=== PATIENT | male | born 1985 | race Caucasian/White ===

== ENCOUNTER → 2019-01-09 08:58 | Outpatient (CLI) | payer OTHER, SELFPAY | LOC: PSN 09:02 | PROVIDERS: Family Provider Family Medicine; PCP Family Medicine; Referring Provider Family Medicine; Visit Provider Family Medicine | DX: R00.0 Tachycardia, unspecified (principal) | CPT/HCPCS: 93225; 93226 ==

== ENCOUNTER 2019-01-21 23:36 | Emergency (ER) | payer OTHER, SELFPAY ==
[2019-01-21 23:38] VITALS: BP 123/80; PULSE 95; RESP 16; TEMP 36.8; O2SAT 98; BMI 19.3
[2019-01-21 23:42] VITALS: RESP 16
--- NOTE | 2019-01-21 23:48 | ED.RN ---
RN CALLED FOR EKG, PULLED OLD EKGS FOR DR SNELL
--- NOTE | 2019-01-21 23:54 | EKG12_ITS ---
Test Reason : PALPITATIONS Blood Pressure : / mmHG Vent. Rate : 059 BPM Atrial Rate : 058 BPM P-R Int : 000 ms QRS Dur : 096 ms QT Int : 406 ms P-R-T Axes : 000 091 063 degrees QTc Int : 401 ms Junctional rhythm Rightward axis Abnormal ECG Confirmed by GIOVANA CASTELAN, JOESPH ([id number]), newspaper editor managing JACK GARCIA ([id number]) on 01/23/2019 1:05:45 PM Referred By: SERENITY Confirmed By:JOESPH AKHTAR MD
--- NOTE | 2019-01-21 23:54 | RAD_ITS ---
STUDY: X-RAY CHEST REASON FOR EXAM: Male, 33 years old. Chest pain TECHNIQUE: 2 views COMPARISON: None. FINDINGS: There is COPD demonstrated by flattening of hemidiaphragms and hyperinflation of the lungs. The heart is small in size.. Normal visualized thoracic spine. Normal visualized ribs, clavicles, and shoulders. There is no demonstrated abnormality of the visualized soft tissue structures of the upper abdomen. RAD/Chest PA and Lateral IMPRESSION: COPD. Nothing acute in the lungs Electronically Signed: Ankit Cleveland MD at 1:16 EDT Tel , Service support ,
[2019-01-21 23:58] VITALS: O2SAT 100
[2019-01-22 00:05] LABS: Absolute Neutrophil Count 3.6 X10^3/uL (2.0-7.7); Basophil% 1.4 % (0-1); Eosinophil# 0.29 X10^3/uL; Eosinophils% 4.1 % (0-5); Hematocrit 46.4 % (40-54); Hemoglobin 16.3 g/dl (13.0-16.5); Lymphocyte % 32.9 % (19-41); Mean Corp Hgb Conc 35.1 g/gl (32-36); Mean Corpuscular Hgb 32.2 pg (27.0-32.0); Mean Corpuscular Volume 91.7 fL (80-94); Mean Platelet Vol. 9.5 fl (6.2-12.0); Monocyte# 0.68 X10^3/uL; Monocyte% 9.7 % (0-10); Neutrophil # 3.61 X10^3/uL (2.7-7.7); Neutrophil % 51.8 % (47-70); Platelet Count 272 K/mm3 (150-450); RBC Distribution Width CV 11.9 % (11.6-14.6); RBC Distribution Width SD 39.5 fl (35.1-43.9); Red Blood Count 5.06 M/mm3 (4.6-6.2)
[2019-01-22 00:12] LABS: POSITIVE COUNT NO; POSITIVE DIFFERENTIAL NO; POSITIVE MORPHOLOGY NO
[2019-01-22] MEDS: 0.9% Normal Saline 1,000 ML 1000 ML IV (00:21)
[2019-01-22 00:23] LABS: D-Dimer Quantitative (DVT/PE) 0.29 FEU/ug/m (0.27-0.49)
[2019-01-22 00:33] LABS: Anion Gap 4 (5-15); BUN 15 mg/dL (7-18); Calcium,Total 8.8 mg/dL (8.5-10.1); Chloride 108 mmol/L (98-107); Creatinine, Serum 0.94 mg/dL (0.70-1.30); EST Glomerular Filtration Rate 100 mL/min (>60); Est Glom Filt Rate - Afr Amer 121 mL/min (>60); Estimated Creatinine Clearance 104.46 ml/min; Glucose 91 mg/dL (74-106); Potassium 3.6 mmol/L (3.5-5.1); Sodium Level 142 mmol/L (136-145)
--- NOTE | 2019-01-22 00:46 | ED.VISSUMM ---
- ER Visit Summary Date of Service: 01/22/19 Chief Complaint: Palpitations History of Present Illness: The patient is a 33 M presenting with several months of palpitations and anxiety. He saw his primary care physician and it was presumed secondary to anxiety because he has been under a severe amount of stress at work and has been given several more responsibilities. He was started on Zoloft and as needed Atarax. He has had mild improvement but is still having intermittent palpitations during times of stress. He recently wore a Holter monitor that revealed sinus tachycardia that coincided with his symptoms based on his journal. There are no other concerning findings. He is currently scheduled to follow-up with cardiology. He denies new or concerning features. They have been fairly similar throughout this. He denies lower extremity pain or swelling. Denies history of DVT or PE. He has not been on cardiac medications. He does not smoke. No family history of cardiac disease at young age. No syncopal episodes. Physical Examination: Vitals are within normal limits. Heart rate is in the 90s and appears sinus on the monitor. No murmur. Lungs are clear. Good air movement. No chest wall tenderness. No clinical evidence of DVT. No edema. Normal neurologic exam. He appears somewhat anxious but thought content is normal. No suicidal thoughts or ideation. Test Results: CBC and BMP are normal. D-dimer negative. EKG was obtained during his blood draw when he did get slightly lightheaded and sharif'd down briefly. He states that this is typical for him during blood draws. This lasted only a few minutes. His EKG reveals a regular rhythm. Narrow complexes. No ST elevation. There are obvious P waves on the monitor and it appears sinus. Chest x-ray unremarkable. Emergency Department Course and Treatment: He was given IV fluids and observed for several hours. He is asymptomatic. He appears to be in normal sinus rhythm. I reviewed his Holter monitor results. There was sinus tachycardia but no evidence of life-threatening rhythm. He did have multiple PVCs as well. He looks quite well here. He has close follow-up already in place with cardiology. I feel he can safely be discharged home. He will return here if worse. Treatment Plan: Follow-up with cardiology, call tomorrow to see if he can be seen sooner. Disposition: Home stable Impression: Subsequent encounter palpitations This note was generated with [employer] dictation software. It may contain incorrect words, spelling, and punctuation that were not noted in review of the chart prior to signing ED Disposition - Plan for ED Patient: Instructions: ED Palpitations Referrals: Garland Foreman MD [STAFF PHYSICIAN] - (live)
[2019-01-22 01:35] VITALS: BP 106/81; PULSE 78; RESP 16; O2SAT 96
[2019-01-22] MEDS: LORazepam 0.5 MG Tablet PO (01:35)
== END 2019-01-22 01:37 | disposition home or self-care (01) ==
LOC: ED 23:55
PROVIDERS: Emergency Provider Emergency Medicine; Family Provider Family Medicine; PCP Family Medicine
DX: R00.2 Palpitations (principal); R00.0 Tachycardia, unspecified; R42 Dizziness and giddiness; F41.9 Anxiety disorder, unspecified; Z79.899 Other long term (current) drug therapy
CPT/HCPCS: 71046; 80048; 85025; 85379; 93005; 99285

== ENCOUNTER → 2019-02-05 10:45 | Outpatient (CLI) | payer OTHER, SELFPAY ==
[2019-01-28 10:50] VITALS: BMI 19.2
--- NOTE | 2019-02-05 10:46 | STEWCON_ITS ---
Reason For Study: arrhythmia Stress Results Protocol: Alex Protocol WITH DEFINITY Maximum Predicted HR: 189 bpm Target HR: 161 bpm % Maximum Predicted HR: 101 % DurationHeart Rate Stage (mm:ss) (bpm) BP Comment BASELINE 88 110/804 CC DEFINITY STAGE 1 3:00 110 118/70 STAGE 2 3:00 123 118/62 STAGE 3 3:00 144 122/70 STAGE 4 3:00 173 130/60 STAGE 5 0:45 190 / 1 CC DEFINITY RECOVERY 108 110/641 CC DEFINITY Stress Duration: 12:45 mm:ss Maximum Stress HR: 190 bpm Baseline Echocardiogram Findings The estimated ejection fraction is 65 %. Stress Echo Wall motion Data Resting WM Intermediate WM Stress WM Resting Wall Motion Wall Motion Stress No regional wall motion No regional wall motion abnormalities noted. abnormalities noted. EKG Data Normal intervals are noted. The patient exercised according to the regular Alex protocol for a total duration of 12:45. The maximum heart rate attained was 193 beats per minute. This was 102% of maximum predicted heart rate. The patient exercised into stage 5 of the Alex protocol. During stress, there were no ST or T wave changes noted to suggest ischemia. No clinical angina was noted. No arrhythmias noted. Interpretation Summary The estimated ejection fraction is 65 %. Normal, adequate, treadmill echocardiogram. Negative for ischemia by EKG and echocardiographic criteria. No anginal symptoms noted. No arrhythmias noted. Excellent exercise capacity for age. Appropriate blood pressure response to exercise. Excellent chronotropic response to exercise. Final LVEF is 75%. Decreased sensitivity due to poor echo windows requiring Definity enhancing agent. Test terminated due to the attainment of target heart rate. The study was technically difficult. Contrast injection was performed. Ordering Physician: Garland Foreman MD Referring Physician: Garland Foreman Performed By: Elayne Iglesias RDCS
== END ==
LOC: CVS 10:45
PROVIDERS: Family Provider Family Medicine; PCP Family Medicine; Referring Provider Internal Medicine Cardiovascular Disease; Visit Provider Internal Medicine Cardiovascular Disease
DX: R00.0 Tachycardia, unspecified (principal); R00.2 Palpitations
CPT/HCPCS: 93017; 93350; Q9957; A4216; C8928

== ENCOUNTER → 2019-02-11 12:35 | Outpatient (CLI) | payer OTHER, SELFPAY ==
[2019-01-28 10:50] VITALS: BMI 19.2
[2019-02-11 13:55] LABS: AST(SGOT) 37 U/L (15-37); Alanine Aminotransfer ALT/SGPT 57 U/L (16-61); Albumin, Serum 3.9 g/dL (3.2-5.0); Alkaline Phosphatase 74 U/L (45-117); Bilirubin, Direct 0.08 mg/dL (0.00-0.30); Cholesterol 155 mg/dL (200); Globulin 2.8 g/dL (2.2-4.2); High Density Lipoprotein 68 mg/dL; Protein, Total 6.7 g/dL (6.4-8.2); T4 Total, Thyroxin 8.3 ug/dL (4.5-12.1); Thyroid Stim Hormone (TSH) 1.84 uIU/mL (0.358-3.74); Triglycerides 49 mg/dL; Very Low Density Lipoprotein 10 mg/dL (5-40)
== END ==
PROVIDERS: Family Provider Family Medicine; PCP Family Medicine; Referring Provider Internal Medicine Cardiovascular Disease; Visit Provider Internal Medicine Cardiovascular Disease
DX: R00.2 Palpitations (principal); R00.0 Tachycardia, unspecified; F41.9 Anxiety disorder, unspecified
CPT/HCPCS: 36415; 80061; 80076; 84436; 84443

== ENCOUNTER → 2019-02-14 08:55 | Outpatient (CLI) | payer OTHER, SELFPAY ==
[2019-01-28 10:50] VITALS: BMI 19.2
--- NOTE | 2019-02-14 08:57 | ECHOD_ITS ---
Reason For Study: PALPITATIONS Procedure This was a 2D Doppler, Color Flow transthoracic echocardiogram. Exam performed in department. Left Ventricle Normal size and thickness. The estimated ejection fraction is 65 %. Normal diastology for age. No regional wall motion abnormalities noted. Right Ventricle Normal size and thickness. Normal systolic function. Atria Normal left atrium. Normal right atrium. Normal atrial septum. Mitral Valve The mitral valve is structurally normal. No prolapse or stenosis seen. Trivial mitral valve insufficiency. Tricuspid Valve Normal tricuspid valve. Trivial tricuspid valve insufficiency. Right ventricular systolic pressure estimated to be 18 mmHg. Aortic Valve Normal aortic valve. Trisinus/trileaflet aortic valve. Pulmonic Valve Normal pulmonic valve. Great Vessels Normal aortic root. Normal arch. Normal inferior vena cava. Inferior vena cava collapse with sniff. Pericardium/Pleural No pericardial effusion. MMode/2D Measurements & Calculations LVIDd: 4.8 cm IVSd: 0.77 cm Ao root diam: 3.2 cm LVIDs: 3.2 cm LVPWd: 0.79 cm RVDd: 3.6 cm FS: 32.0 % LAV(MOD-bp): 51.1 ml LA A4 area: 16.9 cm2 LA dimension(2D): 2.6 cm LAV(MOD-bp) Indexed: 27.5 ml/m2 LAV(MOD-sp2): 51.2 ml LAV(MOD-sp4): 45.3 ml RA A4 area: 13.9 cm2 Time Measurements MV dec time: 0.23 sec Doppler Measurements & Calculations MV E max adithya: 79.0 cm/sec Lat Peak E' Adithya: 17.3 cm/sec Med Peak E' Adithya: 11.9 cm/sec MV A max adithya: 47.0 cm/sec E/E' lat: 4.6 E/E' med: 6.7 MV E/A: 1.7 Ao V2 max: 103.0 cm/sec LV V1 max: 96.9 cm/sec PA V2 max: 101.9 cm/sec Ao max P.2 mmHg LV V1 max P.8 mmHg PI end-d adithya: 67.6 cm/sec TR max adithya: 181.7 cm/sec TR max P.2 mmHg Interpretation Summary The estimated ejection fraction is 65 %. Normal diastology for age. Trivial mitral valve insufficiency. Right ventricular systolic pressure estimated to be 18 mmHg. There is no comparison study available. Ordering Physician: Garland Foreman Referring Physician: PRISCILLA CAMILO Performed By: Omayra Martinez RDCS, RVT
== END ==
PROVIDERS: Family Provider Family Medicine; PCP Family Medicine; Referring Provider Internal Medicine Cardiovascular Disease; Visit Provider Internal Medicine Cardiovascular Disease
DX: R00.2 Palpitations (principal); R00.0 Tachycardia, unspecified
CPT/HCPCS: 93306

== ENCOUNTER → 2019-03-07 20:00 | Outpatient (CLI) | payer OTHER, SELFPAY ==
[2019-01-28 10:50] VITALS: BMI 19.2
== END ==
PROVIDERS: Family Provider Family Medicine; PCP Family Medicine; Referring Provider Internal Medicine Cardiovascular Disease; Visit Provider Internal Medicine Cardiovascular Disease
DX: G47.10 Hypersomnia, unspecified (principal); R00.2 Palpitations; R00.0 Tachycardia, unspecified
CPT/HCPCS: 95810

== ENCOUNTER → 2019-04-18 20:11 | Outpatient (CLI) | payer OTHER, SELFPAY ==
[2019-03-25 11:15] VITALS: BMI 20.2
== END ==
PROVIDERS: Family Provider Family Medicine; PCP Family Medicine; Referring Provider Nurse Practitioner Acute Care; Visit Provider Nurse Practitioner Acute Care
DX: G47.33 Obstructive sleep apnea (adult) (pediatric) (principal)
CPT/HCPCS: 95811

== ENCOUNTER → 2019-04-24 13:17 | Outpatient (CLI) | payer OTHER, SELFPAY ==
[2019-03-25 11:15] VITALS: BMI 20.2
--- NOTE | 2019-04-24 15:56 | PFTCOMP_ITS ---
COMPLETE PULMONARY FUNCTION TEST INTERPRETATION Brief HPI: Patient is a 33 year old male, currently under the care of Dr. Frazier, who presents to [facility] for complete pulmonary function tests secondary to diagnosis of dyspnea. Respiratory therapist reports good effort and reproducible results. Interpretation: Forced expiration spirometry shows no large airways obstructive ventilatory defect with an FEV1 of 87% predicted. There is no significant bronchodilator response by strict ATS criteria. Spirograms are of good quality and plateau normally. The respiratory flow volume loop shows a normal pattern. Lung volumes by body plethysmography show a normal total lung capacity at 7.32 L, 97% predicted. All other lung volumes are within normal limits. Diffusion capacity by carbon monoxide is elevated at 138% predicted. The airway resistance is normal. No previous pulmonary function tests were available for review. Impression: These pulmonary function tests are within normal limits.
== END ==
PROVIDERS: Family Provider Family Medicine; PCP Family Medicine; Referring Provider Nurse Practitioner Acute Care; Visit Provider Nurse Practitioner Acute Care
DX: R06.00 Dyspnea, unspecified (principal)
CPT/HCPCS: 94060; 94726; 94729

== ENCOUNTER → 2019-04-28 10:00 | Outpatient (CLI) | payer OTHER, SELFPAY ==
[2019-03-25 11:15] VITALS: BMI 20.2
== END ==
PROVIDERS: Family Provider Family Medicine; PCP Family Medicine; Referring Provider Nurse Practitioner Acute Care; Visit Provider Nurse Practitioner Acute Care
DX: R00.2 Palpitations (principal); R00.0 Tachycardia, unspecified; G47.10 Hypersomnia, unspecified

== ENCOUNTER 2020-08-21 12:06 | Emergency (ER) | payer OTHER, SELFPAY ==
[2020-07-01 12:21] VITALS: BMI 20.7
[2020-08-21 12:06] VITALS: BP 132/90; PULSE 83; RESP 16; TEMP 36.4; O2SAT 100; BMI 20.9
[2020-08-21 12:09] VITALS: O2SAT 99
[2020-08-21] MEDS: HYDROcodone Bitartrate/Apap 5/325 Tablet PO (12:30)
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
== END 2020-08-21 13:15 | disposition home or self-care (01) ==
LOC: ED 12:28
PROVIDERS: Emergency Provider Emergency Medicine; PCP Family Medicine
DX: M54.5 Low back pain (principal); F32.9 Major depressive disorder, single episode, unspecified; Z72.0 Tobacco use; Z79.899 Other long term (current) drug therapy
CPT/HCPCS: 72100; 99281

== ENCOUNTER 2021-08-06 08:37 | Emergency (ER) | payer OTHER, SELFPAY ==
[2021-08-06 08:38] VITALS: BP 122/85; PULSE 65; RESP 16; TEMP 36.5; O2SAT 96; BMI 21.7
--- NOTE | 2021-08-06 09:09 | ED.VIS.GI ---
HPI HPI - GI History of Present Illness Chief Complaint: Abd Pain Informant: patient Abdominal Pain/Flank Pain Onset: Today Context: Sudden Onset Timing: Continuous Quality: Sharp Location: Diffuse Current Severity: Severe Maximum Severity: Severe Worsened by: Nothing Relieved by: Nothing Nausea/Vomiting/Emesis GI Symptom: Positive for Nausea; Negative for Vomiting Diarrhea/Melena/Hematochezia GI Symptom: Negative for Diarrhea, Melena and Hematochezia Associated Symptoms Associated Symptoms: Negative for Dysuria and Hematuria Narrative Narrative: Patient presents with abdominal pain that began today. Patient states that began when he woke up today. Patient states it is sharp and diffuse across his abdomen. Patient states nothing makes it worse and nothing makes it better. Patient admits to some nausea but denies any vomiting. Patient denies any diarrhea, melena, or hematochezia. Patient denies any dysuria or hematuria. Patient denies any radiation of the pain. [facility] Medical History (Updated 08/06/21 @ 12:[address] Michele Singletary DO) Allergic rhinitis Anxiety Dental caries Dyspnea Electronic cigarette use History of tobacco use Lymphadenopathy of left cervical region Mass of left submandibular region [place] (obstructive sleep apnea) Palpitations PND (post-nasal drip) Tachycardia Tobacco use disorder Medical History no medical history Home Medications escitalopram oxalate 20 mg tablet 20 mg PO DAILY 07/02/19 [History Last Taken 08/21/20] Allergy/AdvReac Type Severity Reaction Status Date / Time guanfacine AdvReac Unknown bradycardia Verified 08/06/21 08:38 /syncope Family History Father Cancer Hypertension Surgical History history left radial fracture History of surgery on wrist History of wisdom tooth extraction (04/06/16) Social History Smoking Status: Current every day smoker tobacco type: e-cigarettes Tobacco: How many years used: 7 Electronic Cigarette Use: with nicotine second hand exposure: Yes caffeine: No ROS ROS ED Constitutional Constitutional ED: Denies chills or fever(s) Eyes Eyes: Denies blurry vision or change in vision ENT ENT ED: Denies rhinorrhea or sore throat Cardiovascular Cardiovascular: Denies chest pain or palpitations Respiratory/Chest Respiratory/Chest: Denies cough or dyspnea Gastrointestinal Gastrointestinal: Reports abdominal pain and nausea; Denies vomiting Genitourinary Genitourinary ED: Denies dysuria or hematuria Musculoskeletal Musculoskeletal: Denies back pain or neck pain Integumentary Denies abscess or rash Neurologic Neurologic: Denies headache(s) or weakness Allergic/Immunologic Allergic/Immunologic ED: Denies mouth swelling or urticaria EXAM Physical Exam Const Vital Signs: 08/06/21 08:38 Temperature 97.7 F L Temperature Source Temporal Pulse Rate 65 Respiratory Rate 16 Blood Pressure 122/85 H Blood Pressure Mean 97 Pulse Ox 96 Oxygen Delivery Method Room Air Positive well nourished and well developed General Appearance ED: well developed HEENT Reports moist mucous membranes Neck supple and no JVD Resp normal respiratory effort and clear to auscultation bilaterally Cardio regular rate, regular rhythm and no murmurs GI normal to inspection, nondistended, normoactive bowel sounds and non-distended Auscultation: normoactive bowel sounds Palpation: soft and tender epigastric, LLQ, RLQ, LUQ, RUQ, periumbilical and suprapubic Extremity normal to inspection General Extremety ED: Negative for edema or tenderness General Extremity: Negative for edema Neuro oriented x3, CN's II-XII intact bilaterally and no sensory deficits noted Sensorium / Orientation: alert Motor Exam: strength 5/5 throughout Psych mental status grossly normal Skin no rashes or lesions noted MDM MDM MDM Narrative Medical decision making narrative: Patient was given IV fluids, morphine, and Zofran. CBC and comprehensive metabolic profile were within normal limits. Lipase was normal. CT scan of the abdomen pelvis was obtained. There is no acute intra-abdominal process noted. This was interpreted by the radiologist and reviewed by myself. Patient is feeling better on reevaluation. Patient was able to ambulate to the bathroom without difficulty. Patient was instructed to follow-up with his primary care physician in 5 to 7 days. Patient understood and was agreeable with the plan. All questions were answered. Lab Data Attestation: I reviewed the patient's lab results. Labs: Laboratory Results - last 24 hr 08/06/21 08/06/21 09:30 09:30 WBC 4.7 RBC 4.84 Hgb 15.5 Hct 45.2 MCV 93.4 MCH 32.0 MCHC 34.3 RDW Std Deviation 40.0 RDW Coeff of Han 11.6 Plt Count 276 MPV 9.6 Immature Gran % (Auto) 0.200 Neut % (Auto) 52.5 Lymph % (Auto) 32.3 Barnes % (Auto) 8.4 Eos % (Auto) 5.5 H Baso % (Auto) 1.1 H Absolute Neuts (auto) 2.5 Absolute Lymphs (auto) 1.53 Nucleated RBC % 0 Sodium 141 Potassium 3.9 Chloride 105 Carbon Dioxide 29.0 Anion Gap 7 BUN 12 Creatinine 0.94 Estim Creat Clear Calc 114.74 Est GFR (MDRD) Af Amer 119 Est GFR (MDRD) Non-Af 98 BUN/Creatinine Ratio 12.8 Glucose 123 H Calcium 8.9 Total Bilirubin 0.20 AST 18 ALT 25 Alkaline Phosphatase 68 Total Protein 7.4 Albumin 4.2 Globulin 3.2 Albumin/Globulin Ratio 1.3 Lipase 244 Radiography Diagnostic Testing: Clinical Impression(s) from Imaging Studies Abdomen/Pelvis CT 08/06/21 09:16 IMPRESSION: Normal enhanced CT of the abdomen and pelvis. Electronically Signed: Esteban Hill MD at 12:02 EDT Tel , Service support , Discharge Plan Triage Chief Complaint: Abd Pain ED Provider: Michele Singletary Dx/Rx/DC Orders Clinical Impression: Abdominal pain Instructions: ED Abdominal Pain Unkn Cause Male... Prescriptions: No Action escitalopram oxalate [Lexapro] 20 mg tablet 20 mg PO DAILY RF: 0 Primary Care Provider: Milad Stringer Referrals: Milad Stringer MD [Primary Care Provider] - 5-7 Days Disposition Disposition: Home, Self Care
--- NOTE | 2021-08-06 09:16 | CT_ITS ---
STUDY: CT ABDOMEN AND PELVIS WITH CONTRAST REASON FOR EXAM: Male, 35 years old. Abdominal pain -- IV PO Contrast RADIATION DOSAGE (If Supplied By Facility): CTDIvol = ( 11.21 ) mGy, DLP = ( 657.35 ) mGycm TECHNIQUE: Transaxial images were obtained from the dome of the diaphragm to the symphysis pubis with oral contrast. Oral and amp; IV Gastrografin and amp; 100mL Isovue-300 was administered. Sagittal and coronal images were reconstructed. Individualized dose optimization techniques were used for this CT. COMPARISON: None. FINDINGS: The visualized lung bases are unremarkable. The visualized portions of the heart are within normal limits. Normal liver. Normal gallbladder and extrahepatic biliary system. Normal spleen. Normal pancreas. Normal bilateral adrenal glands. Subcentimeter cyst of the right kidney. Normal left kidney. Normal visualized stomach. Normal small intestine. Normal colon. The appendix is visualized and appears normal. Normal abdominal aorta. Normal inferior vena cava. Normal retroperitoneum. Normal urinary bladder. Normal abdominal wall. Normal osseous structures. CT/Abdomen/Pelvis WITH Contrast IMPRESSION: Normal enhanced CT of the abdomen and pelvis. Electronically Signed: Esteban Hill MD at 12:02 EDT Tel , Service support ,
[2021-08-06] MEDS: Ondansetron 4 MG/2 ML Vial IV (09:31)
[2021-08-06] MEDS: 0.9% Normal Saline 1,000 ML 1000 ML IV (09:31)
[2021-08-06] MEDS: Morphine 4 MG/ML Syringe IV (09:31)
[2021-08-06 09:41] LABS: Absolute Lymphocyte Count 1.53 X10^3/uL (0.83-4.51); Absolute Neutrophil Count 2.5 X10^3/uL (2.0-7.7); Basophil# 0.05 X10^3/uL; Basophil% 1.1 % (0-1); Eosinophil# 0.26 X10^3/uL; Eosinophils% 5.5 % (0-5); Hematocrit 45.2 % (40-54); Hemoglobin 15.5 g/dL (13.0-16.5); Lymphocyte # 1.53 X10^3/ul (0.83-4.51); Lymphocyte % 32.3 % (19-41); Mean Corp Hgb Conc 34.3 g/dL (32-36); Mean Corpuscular Volume 93.4 fL (80-94); Mean Platelet Vol. 9.6 fl (6.2-12.0); Monocyte% 8.4 % (0-10); NRBC Flagged by Analyzer 0 % (0-5); Neutrophil # 2.49 X10^3/uL (2.7-7.7); Neutrophil % 52.5 % (47-70); Platelet Count 276 K/mm3 (150-450); RBC Distribution Width CV 11.6 % (11.6-14.6); Red Blood Count 4.84 M/mm3 (4.6-6.2); White Blood Count 4.7 K/mm3 (4.4-11.0)
[2021-08-06 10:09] LABS: ALB/GLOB Ratio 1.3 RATIO (0.9-2.4); AST(SGOT) 18 U/L (15-37); Alanine Aminotransfer ALT/SGPT 25 U/L (16-61); Albumin, Serum 4.2 g/dL (3.2-5.0); Alkaline Phosphatase 68 U/L (45-117); Anion Gap 7 (5-15); BUN 12 mg/dL (7-18); BUN/Creat Ratio 12.8 RATIO (10-20); Calcium,Total 8.9 mg/dL (8.5-10.1); Chloride 105 mmol/L (98-107); Creatinine, Serum 0.94 mg/dL (0.70-1.30); EST Glomerular Filtration Rate 98 mL/min (>60); Est Glom Filt Rate - Afr Amer 119 mL/min (>60); Estimated Creatinine Clearance 114.74 ml/min; Globulin 3.2 g/dL (2.2-4.2); Glucose 123 mg/dL (74-106); Lipase 244 U/L (73-393); Potassium 3.9 mmol/L (3.5-5.1); Protein, Total 7.4 g/dL (6.4-8.2); Sodium Level 141 mmol/L (136-145)
[2021-08-06 12:44] VITALS: RESP 18
== END 2021-08-06 12:46 | disposition home or self-care (01) ==
PROVIDERS: Emergency Provider Emergency Medicine; PCP Family Medicine
DX: R10.9 Unspecified abdominal pain (principal); R11.0 Nausea; G47.33 Obstructive sleep apnea (adult) (pediatric); F41.9 Anxiety disorder, unspecified; F17.290 Nicotine dependence, other tobacco product, uncomplicated; Z79.899 Other long term (current) drug therapy
CPT/HCPCS: 74177; 80053; 83690; 85025; 96361; 96374; 96375; 99283; J7030; Q9967; A4216; J2405

== ENCOUNTER → 2023-11-19 | Outpatient (CLI) | payer OTHER, SELFPAY ==
--- NOTE | 2023-11-19 13:50 | RAD_ITS ---
INDICATION: cough EXAMINATION/TECHNIQUE: X-RAY - XR Chest 2 Views COMPARISON: Prior study dated: 01/22/2019 FINDINGS: LINES/DEVICES: None. LUNGS: No consolidation, edema or effusion. No pneumothorax. MEDIASTINUM AND CARDIOVASCULAR STRUCTURES: Cardiac silhouette not enlarged. Central airways and mediastinal contour are unremarkable. BONES AND SOFT TISSUES: Unremarkable. RAD/Chest PA and Lateral IMPRESSION: No radiographic evidence of acute cardiopulmonary disease. Electronically Signed: Ranjith Gotti MD at 14:11 EST ,
--- OUTSIDE RECORDS SUMMARY | 2023-11-19 14:13 | XMS RPT_ITS | CCD ---
Author Name Unknown Address [facility] [address] [place] [address] Organization [facility] Care Team Providers Care Supervisor Building Maintenance Name Role Phone Milad Stringer MD Primary Care Provider MILAD STRINGER Attending Unavailable MILAD STRINGER Primary Care Unavailable Allergies Allergy Classification Reported Allergen(s) Allergy Type Date of Onset Reaction(s) Facility (3 sources) [facility] Drug Allergy 01-07-2019 Other [facility] Problems Active Problems Problem Classification Problem Date Documented Da te Episodic/Chronic Anxiety disorders (4 sources) Anxiety; Translations: [Anxiety disorder, unspecified] Onset: 01-07-2019 08-13-2022 Chronic Headache; including migraine (3 sources) Tension-type headache; Translations: [Tension-type headache, unspecified, not intractable] Onset: 11-24-2020 08-13-2022 Chronic Malaise and fatigue (3 sources) Fatigue; Translations: [Chronic fatigue, unspecified] Onset: 05-15-2022 08-13-2022 Chronic Miscellaneous mental health disorders (3 sources) Primary insomnia; Translations: [Primary insomnia] Onset: 12-15-2021 08-13-2022 Chronic Other screening for suspected conditions (not mental disorders or infectious disease) (11 sources) Patient encounter status; Translations: [Encounter for screening for diabetes mellitus] Onset: 06-05-2023 Resolved: 06-05-2023 06-05-2023 Episodic Other upper respiratory disease (3 sources) Allergic rhinitis; Translations: [Allergic rhinitis, unspecified] Onset: 07-16-2020 08-13-2022 Chronic Other upper respiratory disease (3 sources) Allergic rhinitis due to pollen; Translations: [Allergic rhinitis due to pollen] Onset: 06-26-2017 08-13-2022 Chronic Residual codes; unclassified (4 sources) Obstructive sleep apnea syndrome; Translations: [Obstructive sleep apnea (adult) (pediatric)] Onset: 05-14-2019 08-13-2022 Chronic Past or Other Problems Problem Classification Problem Date Documented Date Episodic/Chronic Cardiac dysrhythmias (3 sources) Tachycardia; Translations: [Tachycardia, unspecified] Onset: 01-07-2019 08-13-2022 Episodic Disorders of teeth and jaw (3 sources) Dental caries; Translations: [Dental caries, unspecified] Onset: 06-15-2015 Resolved: 06-05-2023 06-05-2023 Episodic Lymphadenitis (3 sources) Cervical lymphadenopathy; Translations: [Localized enlarged lymph nodes] Onset: 06-15-2015 Resolved: 06-05-2023 06-05-2023 Episodic Other skin disorders (3 sources) Mass of submandibular region; Translations: [Localized swelling, mass and lump, head] Onset: 08-10-2016 08-13-2022 Episodic Results Test Name Value Interpretation Reference Range Facil ity Vital Signs Date Time Vital Sign Value Performing Clinician Faci lity 06-05-2023 14:19-0400 Body height 182.2 cm Milad Stringer MD Work Phone: [facility] 06-05-2023 14:19-0400 Body mass index (BMI) [Ratio] 21.55 kg/m2 Milad Stringer MD Work Phone: [facility] 06-05-2023 14:19-0400 Body weight 71.58 kg Milad Stringer MD Work Phone: [facility] 06-05-2023 14:19-0400 Diastolic blood pressure 75 mm[Hg] Milad Stringer MD Work Phone: [facility] 06-05-2023 14:19-0400 Heart rate 71 /min Milad Stringer MD Work Phone: [facility] 06-05-2023 14:19-0400 SaO2% (BldA) [Mass fraction] 96 % Milad Stringer MD Work Phone: [facility] 06-05-2023 14:19-0400 Systolic blood pressure 115 mm[Hg] Milad Stringer MD Work Phone: [facility] Encounters Encounter Date Encounter Type Care Provider Facility Start: 06-06-2023 Telephone encounter Milad Elizabeth MD Work Phone: [facility] Procedures Date Procedure Procedure Detail Performing Clinician Start: 06-05-2023 Comprehensive metabo lic panel Milad Stringer MD Work Phone: Start: 06-05-2023 Lipid panel Milad Elizabeth MD Work Phone: Start: 06-05-2023 Adult depression scr eening assessment Milad Stringer MD Work Phone: Start: 06-05-2023 Lipid 1996 panel - S lisbeth or Plasma Milad Stringer MD Work Phone: Start: 05-15-2022 Lipid 1996 panel - S lisbeth or Plasma Milad Stringer MD Work Phone: Plan of Treatment Date Care Activity Detail Author Start: 2037 Zoster Vaccines (1 of 2) Zoster Vaccines (1 of 2) [facility] Start: 05-15-2032 DTaP/Tdap/Td Vaccines (2 - Td or Tdap) DTaP/Tdap/Td Vaccines (2 - Td or Tdap) [facility] Start: 06-05-2028 Lipid panel Lipid Panel [facility] Start: 05-15-2027 Lipid panel Lipid Panel [facility] Start: 06-11-2024 End: 06-11-2024 Patient encounter procedure 06/11/2024 7:30 AM EDT Office Visit [facility] [address] [place] [address] Milad Stringer MD [address] [place] [place] [id number] [facility] Start: 06-05-2024 Depression Screening Depression Screening [facility] Start: 06-29-2023 Influenza vaccination Influenza Vaccine (#1) [facility] Start: 06-05-2023 End: 06-05-2024 Comprehensive metabolic 1998 panel - Serum or Plasma Comprehensive metabolic panel Lab Routine Screening for diabetes mellitus Expected: 06/05/2023 (Approximate), Expires: 06/05/2024 [facility] Immunizations Immunization Date Immunization Notes Care Provider Ezio pittman 05-15-2022 tetanus toxoid, redu abilio diphtheria toxoid, and acellular pertussis vaccine, adsorbed Milad Stringer MD Work Phone: [facility] [employer] 10-11-2021 influenza, injectabl e, quadrivalent, preservative free Milad Stringer MD Work Phone: [facility] 10-11-2021 Pfizer SARS-CoV-2 Vaccination Milad Stringer MD Work Phone: [facility] 10-11-2021 influenza virus vacc ine, unspecified formulation Milad Stringer MD Work Phone: [facility] [employer] Payers Date Payer Category Payer Private Health Insurance [facility] [id number] 2022-Present [address] [place] [address] Commercial [id number] 2022 Private Health Insurance [id number] Social History Date Type Detail Facility Start: 06-05-2023 Tobacco smoking status NHIS Ex-smoke r [facility] [employer] End: 06-15-2010 History of tobacco use Current smoker [facility] End: 06-15-2010 History of tobacco use Cigarette Smoker [facility] Start: 06-05-2023 Cigarettes smoked cu rrent (pack per day) - Reported 0.5 [facility] Start: 06-05-2023 Tobacco use and exposure Forme r smokeless tobacco user [facility] Start: 06-05-2023 Alcohol intake Current drinke r of alcohol (finding) [facility] Start: 06-05-2023 Alcohol Use Disorder Identification Test - Consumption [AUDIT-C] [facility] How often to you hav e a drink containing alcohol? Monthly or less [facility] How many standard dr inks containing alcohol do you have on a typical day? 1 or 2 [facility] How often do you hav e 6 or more drinks on 1 occasion? Never [facility] How hard is it for y ou to pay for the very basics like food, housing, medical care, and heating Not hard at all [facility] (I/We) worried wheth er (my/our) food would run out before (I/we) got money to buy more. Never true [facility] [employer] In the past 12 month s, was there a time when you were not able to pay the mortgage or rent on time? No [facility] Start: 06-05-2023 Alcohol Comment Rare, couple o f times a year. [facility] Start: 1985 Sex Assigned At Not on file S [facility] Start: 05-26-2023 End: 06-05-2023 Exposure to SARS-CoV-2 (event) Not sure [facility] Clinical Notes 06-05-2023 to 06-07-2023 Assessment & Plan Note - Milad Stringer MD - 06/07/2023 1:07 PM EDTAssessment & Plan Note - Milad Stringer MD - 06/07/2023 1:07 PM Sheela Rich MA - 06/05/2023 2:15 PM EDT Note Date & Type Note Facility 06-07-2023 Evaluation + Plan note Associ ated Problem(s): Anxiety Remission, currently on no medications [facility] 06-07-2023 Evaluation + Plan note Associ ated Problem(s): SALVADOR on CPAP Controlled on CPAP, he wears it every night [facility] 06-07-2023 Miscellaneous Notes Associate d Problem(s): Anxiety Remission, currently on no medications Associated Problem(s): SALVADOR on CPAP Controlled on CPAP, he wears it every night documented in this encounter [facility] 06-07-2023 Telephone encounter Note Form atting of this note might be different from the original. Message released to patient as written. Patient's further questions if applicable: no further questions Were all questions from office addressed or relayed to the patient from encounter: Yes [facility] 06-07-2023 Miscellaneous Notes Formattin g of this note might be different from the original. Message released to patient as written. Patient's further questions if applicable: no further questions Were all questions from office addressed or relayed to the patient from encounter: Yes Left a message to return call. ----- Message from Milad Stringer MD sent at 06/06/2023 11:12 AM EDT ----- Blood sugar and chemistry are normal. Cholesterol is excellent Left a message to return call. documented in this encounter [facility] 06-07-2023 Telephone encounter Note Form atting of this note might be different from the original. Left a message to return call. [facility] 06-06-2023 Telephone encounter Note Form atting of this note might be different from the original. ----- Message from Milad Stringer MD sent at 06/06/2023 11:12 AM EDT ----- Blood sugar and chemistry are normal. Cholesterol is excellent Left a message to return call. [facility] 06-05-2023 History of Presen t illness Narrative Patient verified by last name and date of . Images from the original note were not included. 06/05/2023 Flaco Beatty (: 1985) is a 37 y.o. male , Established patient, here for evaluation of the following chief complaint(s): Annual Exam, Blood Work, and Health Maintenance (Hep b vaccine- refuse/Hiv/hep c screening- refuse/Mmr vaccine- done as child/Varicella vaccine- had chicken pox /Covid 4 vaccine- not done ) ASSESSMENT/PLAN: 1. Annual physical exam Comments: Healthy male 2. Screening for diabetes mellitus - Comprehensive metabolic panel 3. Screening for lipid disorders - Lipid panel Follow up in about 1 year (around 06/05/2024). SUBJECTIVE/OBJECTIVE: HPI -Flaco comes in today for an annual exam, he is currently having no issues his insomnia seems to have been improved his CPAP seems to be working well, he has had no recent tachycardia and his anxiety seems to be well controlled. Review of Systems Constitutional: Negative for activity change, appetite change, chills, fever and unexpected weight change. HENT: Negative for ear pain and sore throat. Respiratory: Negative for shortness of breath. Cardiovascular: Negative for chest pain and palpitations. Gastrointestinal: Negative for abdominal pain, blood in stool, constipation and diarrhea. Genitourinary: Negative for dysuria, frequency, hematuria and urgency. Musculoskeletal: Negative for arthralgias and back pain. Skin: Negative. Neurological: Negative for weakness and numbness. Psychiatric/Behavioral: Negative for dysphoric mood. The patient is not nervous/anxious. Vitals: 06/05/23 1419 BP: 115/75 Pulse: 71 SpO2: 96% Weight: 157 lb 12.8 oz (71.6 kg) Height: 5' 11.75 (1.822 m) Physical Exam Vitals and nursing note reviewed. Constitutional: General: He is not in acute distress. Appearance: Normal appearance. HENT: Right Ear: Tympanic membrane, ear canal and external ear normal. Left Ear: Tympanic membrane, ear canal and external ear normal. Mouth/Throat: Mouth: Mucous membranes are moist. Pharynx: Oropharynx is clear. Eyes: Extraocular Movements: Extraocular movements intact. Pupils: Pupils are equal, round, and reactive to light. Cardiovascular: Rate and Rhythm: Normal rate and regular rhythm. Heart sounds: Normal heart sounds. No murmur heard. Pulmonary: Effort: Pulmonary effort is normal. Breath sounds: Normal breath sounds. Abdominal: General: Bowel sounds are normal. Palpations: Abdomen is soft. Tenderness: There is no abdominal tenderness. Musculoskeletal: General: Normal range of motion. Cervical back: Neck supple. Lymphadenopathy: Cervical: No cervical adenopathy. Skin: General: Skin is warm and dry. Neurological: General: No focal deficit present. Mental Status: He is alert and oriented to person, place, and time. Psychiatric: Mood and Affect: Mood normal. An electronic signature was used to authenticate this note. Milad Stringer MD 06/05/2023 4:41 PM documented in this encounter [facility] 06-05-2023 History of Presen t illness Narrative Patient verified by last name and date of . Images from the original note were not included. 06/05/2023 Flaco Beatty (: 1985) is a 37 y.o. male , Established patient, here for evaluation of the following chief complaint(s): Annual Exam, Blood Work, and Health Maintenance (Hep b vaccine- refuse/Hiv/hep c screening- refuse/Mmr vaccine- done as child/Varicella vaccine- had chicken pox /Covid 4 vaccine- not done ) ASSESSMENT/PLAN: 1. Annual physical exam Comments: Healthy male 2. SALVADOR on CPAP Assessment & Plan: Controlled on CPAP, he wears it every night 3. Anxiety Assessment & Plan: Remission, currently on no medications 4. Screening for diabetes mellitus - Comprehensive metabolic panel 5. Screening for lipid disorders - Lipid panel Follow up in about 1 year (around 06/05/2024). SUBJECTIVE/OBJECTIVE: HPI -Flaco comes in today for an annual exam, he is currently having no issues his insomnia seems to have been improved his CPAP seems to be working well, he has had no recent tachycardia and his anxiety seems to be well controlled. Review of Systems Constitutional: Negative for activity change, appetite change, chills, fever and unexpected weight change. HENT: Negative for ear pain and sore throat. Respiratory: Negative for shortness of breath. Cardiovascular: Negative for chest pain and palpitations. Gastrointestinal: Negative for abdominal pain, blood in stool, constipation and diarrhea. Genitourinary: Negative for dysuria, frequency, hematuria and urgency. Musculoskeletal: Negative for arthralgias and back pain. Skin: Negative. Neurological: Negative for weakness and numbness. Psychiatric/Behavioral: Negative for dysphoric mood. The patient is not nervous/anxious. Vitals: 06/05/23 1419 BP: 115/75 Pulse: 71 SpO2: 96% Weight: 157 lb 12.8 oz (71.6 kg) Height: 5' 11.75 (1.822 m) Physical Exam Vitals and nursing note reviewed. Constitutional: General: He is not in acute distress. Appearance: Normal appearance. HENT: Right Ear: Tympanic membrane, ear canal and external ear normal. Left Ear: Tympanic membrane, ear canal and external ear normal. Mouth/Throat: Mouth: Mucous membranes are moist. Pharynx: Oropharynx is clear. Eyes: Extraocular Movements: Extraocular movements intact. Pupils: Pupils are equal, round, and reactive to light. Cardiovascular: Rate and Rhythm: Normal rate and regular rhythm. Heart sounds: Normal heart sounds. No murmur heard. Pulmonary: Effort: Pulmonary effort is normal. Breath sounds: Normal breath sounds. Abdominal: General: Bowel sounds are normal. Palpations: Abdomen is soft. Tenderness: There is no abdominal tenderness. Musculoskeletal: General: Normal range of motion. Cervical back: Neck supple. Lymphadenopathy: Cervical: No cervical adenopathy. Skin: General: Skin is warm and dry. Neurological: General: No focal deficit present. Mental Status: He is alert and oriented to person, place, and time. Psychiatric: Mood and Affect: Mood normal. An electronic signature was used to authenticate this note. Milad Stringer MD 06/07/2023 1:08 PM documented in this encounter [facility] Annual physical exam- Primary Routine general medical examination at a health care facility SALVADOR on CPAP Anxiety Anxiety state, unspecified Screening for diabetes mellitus Screening for lipid disorders documented in this encounter [facility] Summary Purpose Family History No Family History Records Found Advance Directives No Advanced Directives Records Found Additional Source Comments Reason for Visit (unrecogniz ed section and content) Reason Onset Date Comments Results 06/06/2023 Care Teams (unrecognized sec tion and content) Supervisor Building Maintenance Relationship Specialty Start Date End Date Milad Stringer MD [address] [place] [id number] PCP - General 06/15/15 Supervisor Building Maintenance Relationship Specialty Start Date End Date Milad Stringer MD [address] [place] [address] [phone] PCP - General 06/15/15 (unrecognized sect ion and content) No Status Records Found INFORMATION SOURCE (unrecogn ized section and content) FOR RECORDS PERTAINING TO PATIENTS WHO ARE OR HAVE BEEN ENROLLED IN A CHEMICAL DEPENDENCY/SUBSTANCEABUSE PROGRAM, SOME INFORMATION MAY BE OMITTED. This clinical summary was aggregated from multiple sources. Caution should be exercised in using it in the provision of clinical care. This summary normalizes information from multiple sources, and as a consequence, information in this document may materially change the coding, format and clinical context of patient data. In addition, data may be omitted in some cases. CLINICAL DECISIONS SHOULD BE BASED ON THE PRIMARY CLINICAL RECORDS. [facility]. provides no warranty or guarantee of the accuracy or completeness of information in this document.
== END | disposition home or self-care (01) ==
LOC: RAD 13:50
PROVIDERS: PCP Family Medicine; Referring Provider Nurse Practitioner Acute Care; Visit Provider Nurse Practitioner Acute Care
DX: R05.9 Cough, unspecified (principal)
CPT/HCPCS: 71046

== ENCOUNTER → 2023-12-14 | Outpatient (CLI) | payer OTHER, SELFPAY ==
--- OUTSIDE RECORDS SUMMARY | 2023-12-14 07:53 | XMS RPT_ITS | CCD ---
Author Name Unknown Address [facility] [address] [place] [address] Organization [facility] Care Team Providers Care Dyed Yarn Operator Name Role Phone Milad Stringer MD Primary [...] 182.2 cm Milad Stringer MD Work Phone: [facility] 06-05-2023 14:19-0400 Body mass index (BMI) [Ratio] 21.55 kg/m2 Milad Stringer MD Work Phone: [facility] 06-05-2023 14:19-0400 Body weight 71.58 kg Milad Stringer MD Work Phone: [facility] 06-05-2023 14:19-0400 Diastolic blood pressure 75 mm[Hg] Milad Stringer MD Work Phone: [facility] 06-05-2023 14:19-0400 Heart rate 71 /min Milad Stringer MD Work Phone: [facility] 06-05-2023 14:19-0400 SaO2% (BldA) [Mass fraction] 96 % Milad Stringer MD Work Phone: [facility] 06-05-2023 14:19-0400 Systolic blood pressure 115 mm[Hg] Milad Stringer MD Work Phone: [facility] Encounters Encounter Date Encounter Type Care Provider Facility Start: 06-06-2023 Telephone encounter Milad Elizabeth MD Work Phone: [facility] Procedures Date [...] of 2) Zoster Vaccines (1 of 2) [facility] Start: 05-15-2032 DTaP/Tdap/Td Vaccines (2 - Td or Tdap) DTaP/Tdap/Td Vaccines (2 - Td or Tdap) [facility] Start: 06-05-2028 Lipid panel Lipid Panel [facility] Start: 05-15-2027 Lipid panel Lipid Panel [facility] Start: 06-11-2024 End: 06-11-2024 Patient encounter procedure 06/11/2024 7:30 AM EDT Office Visit [facility] [address] [place] [address] Milad Stringer MD [address] [facility] [address] [place], [place] [id number] [facility] Start: 06-05-2024 Depression Screening Depression Screening [facility] Start: 06-29-2023 Influenza vaccination Influenza Vaccine (#1) [facility] Start: 06-05-2023 End: 06-05-2024 Comprehensive metabolic 1998 panel - Serum or Plasma Comprehensive metabolic panel Lab Routine Screening for diabetes mellitus Expected: 06/05/2023 (Approximate), Expires: 06/05/2024 [facility] Immunizations Immunization Date Immunization Notes Care Provider Ezio pittman 05-15-2022 tetanus toxoid, redu abilio diphtheria toxoid, and acellular pertussis vaccine, adsorbed Milad Stringer MD Work Phone: [facility] [employer] 10-11-2021 influenza, injectabl e, quadrivalent, preservative free Milad Stringer MD Work Phone: [facility] 10-11-2021 Pfizer SARS-CoV-2 Vaccination Milad Stringer MD Work Phone: [facility] 10-11-2021 influenza virus vacc ine, unspecified formulation Milad Stringer MD Work Phone: [facility] [employer] Payers Date Payer Category Payer Private Health Insurance [facility] [id number] 2022-Present [address] [place] [address] Commercial [id number] 2022 Private Health Insurance [id number] Social History Date Type Detail Facility Start: 06-05-2023 Tobacco smoking status NHIS Ex-smoke r [facility] [employer] End: 06-15-2010 History of tobacco use Current smoker [facility] End: 06-15-2010 History of tobacco use Cigarette Smoker [facility] Start: 06-05-2023 Cigarettes smoked cu rrent (pack per day) - Reported 0.5 [facility] Start: 06-05-2023 Tobacco use and exposure Forme r smokeless tobacco user [facility] Start: 06-05-2023 Alcohol intake Current drinke r of alcohol (finding) [facility] Start: 06-05-2023 Alcohol Use Disorder Identification Test - Consumption [AUDIT-C] [facility] How often to you hav e a drink containing alcohol? Monthly or less [facility] How many standard dr inks containing alcohol do you have on a typical day? 1 or 2 [facility] How often do you hav e 6 or more drinks on 1 occasion? Never [facility] How hard is it for y ou to pay for the very basics like food, housing, medical care, and heating Not hard at all [facility] (I/We) worried wheth er (my/our) food would run out before (I/we) got money to buy more. Never true [facility] [employer] In the past 12 month s, was there a time when you were not able to pay the mortgage or rent on time? No [facility] Start: 06-05-2023 Alcohol Comment Rare, couple o f times a year. [facility] Start: 1985 Sex Assigned At Not on file [facility] Start: 05-26-2023 End: 06-05-2023 Exposure to SARS-CoV-2 (event) Not sure [facility] Clinical Notes 06-05-2023 to 06-07-2023 Assessment & Plan Note - Milad Stringer MD - 06/07/2023 1:07 PM EDTAssessment & Plan Note - Milad Stringer MD - 06/07/2023 1:07 PM Sheela Rich MA - 06/05/2023 2:15 PM EDT Note Date & Type Note Facility 06-07-2023 Evaluation + Plan note Associ ated Problem(s): Anxiety Remission, currently on no medications [facility] 06-07-2023 Evaluation + Plan note Associ ated Problem(s): SALVADOR on CPAP Controlled on CPAP, he wears it every night [facility] 06-07-2023 Miscellaneous Notes Associate d Problem(s): Anxiety Remission, currently on no medications Associated Problem(s): SALVADOR on CPAP Controlled on CPAP, he wears it every night documented in this encounter [facility] 06-07-2023 Telephone encounter Note Form atting of this note might be different from the original. Message released to patient as written. Patient's further questions if applicable: no further questions Were all questions from office addressed or relayed to the patient from encounter: Yes [facility] 06-07-2023 Miscellaneous Notes Formattin g of this [...] to return call. documented in this encounter [facility] 06-07-2023 Telephone encounter Note Form atting of this note might be different from the original. Left a message to return call. [facility] 06-06-2023 Telephone encounter Note Form atting of this note might be different from the original. ----- Message from Milad Stringer MD sent at 06/06/2023 11:12 AM EDT ----- Blood sugar and chemistry are normal. Cholesterol is excellent Left a message to return call. [facility] 06-05-2023 History of Presen t illness Narrative [...] 06/05/2023 4:41 PM documented in this encounter [facility] 06-05-2023 History of Presen t illness Narrative [...] Care Teams (unrecognized sec tion and content) Dyed Yarn Operator Relationship Specialty Start Date End Date Milad Stringer MD [address] [place] [id number] PCP - General 06/15/15 Dyed Yarn Operator Relationship Specialty Start Date End Date Milad Stringer MD [address] [place] [address] [phone] PCP - General 06/15/15 (unrecognized sect ion [...] BE BASED ON THE PRIMARY CLINICAL RECORDS. [facility]. provides no warranty or guarantee of the accuracy or completeness of information in this document.
[2023-12-14 07:54] LABS: Absolute Lymphocyte Count 1.39 X10^3/uL (0.83-4.51); Absolute Neutrophil Count 2.9 X10^3/uL (2.0-7.7); Basophil# 0.06 X10^3/uL; Basophil% 1.2 % (0-1); Eosinophil# 0.41 X10^3/uL; Hematocrit 44.1 % (40-54); Hemoglobin 14.9 g/dL (13.0-16.5); Lymphocyte # 1.39 X10^3/ul (0.83-4.51); Mean Corp Hgb Conc 33.8 g/dL (32-36); Mean Corpuscular Volume 94.6 fL (80-94); Mean Platelet Vol. 9.7 fl (6.2-12.0); Monocyte# 0.38 X10^3/uL; Monocyte% 7.4 % (0-10); NRBC Flagged by Analyzer 0 % (0-5); Neutrophil # 2.89 X10^3/uL (2.7-7.7); Neutrophil % 56.2 % (47-70); Platelet Count 251 K/mm3 (150-450); RBC Distribution Width CV 11.9 % (11.6-14.6); RBC Distribution Width SD 40.7 fl (35.1-43.9); Red Blood Count 4.66 M/mm3 (4.6-6.2); White Blood Count 5.1 K/mm3 (4.4-11.0)
[2023-12-14 08:51] LABS: ALB/GLOB Ratio 1.4 RATIO (0.9-2.4); AST(SGOT) 21 U/L (15-37); Alanine Aminotransfer ALT/SGPT 23 U/L (16-61); Albumin, Serum 4.2 g/dL (3.2-5.0); Alkaline Phosphatase 72 U/L (45-117); Anion Gap 4 (5-15); BUN 16 mg/dL (7-18); BUN/Creat Ratio 19.4 RATIO (10-20); Chloride 112 mmol/L (98-107); Cholesterol 161 mg/dL (200); Creatinine, Serum 0.82 mg/dL (0.70-1.30); EST Glomerular Filtration Rate 112 mL/min (>60); Est Glom Filt Rate - Afr Amer 136 mL/min (>60); Globulin 2.9 g/dL (2.2-4.2); Glucose 108 mg/dL (74-106); High Density Lipoprotein 70 mg/dL; Magnesium 2.3 mg/dL (1.6-2.6); Potassium 3.9 mmol/L (3.5-5.1); Protein, Total 7.1 g/dL (6.4-8.2); Sodium Level 144 mmol/L (136-145); Thyroid Stim Hormone (TSH) 1.68 uIU/mL (0.358-3.74); Triglycerides 43 mg/dL; Very Low Density Lipoprotein 9 mg/dL (5-40)
[2023-12-14 09:57] LABS: Vitamin B12 451 pg/mL (211-911); Vitamin D,25 Hydroxy 29.5 ng/mL
== END | disposition home or self-care (01) ==
LOC: PAVLAB 07:37
PROVIDERS: PCP Family Medicine; Referring Provider Nurse Practitioner Family; Visit Provider Nurse Practitioner Family
DX: R00.0 Tachycardia, unspecified (principal); E56.9 Vitamin deficiency, unspecified
CPT/HCPCS: 36415; 80053; 80061; 82306; 82607; 83735; 84443; 85025

== ENCOUNTER → 2024-12-10 | Outpatient (CLI) | payer OTHER, SELFPAY ==
--- NOTE | 2024-12-10 12:37 | NEURO ---
NCS and/or EMG Patient Report Ordering Doctor: Bob Vazquez DATE OF SERVICE: 12/10/24 Flaco presents for electrodiagnostic testing of the left upper limb. Reports numbness tingling and weakness in the left hand. Electrodiagnostic findings: Left median motor nerve demonstrates prolonged latency with normal amplitude and borderline reduced conduction velocity. Left ulnar motor response is within normal limits. Prolonged left median F?wave. Prolonged left median sensory latency at the wrist. Normal left ulnar and radial sensory responses. Needle EMG testing was performed in the left upper limb. All muscles tested showed no evidence of denervation with normal motor unit action potentials. Electrodiagnostic impression: This is an abnormal study in the left upper limb. 1. Electrodiagnostic findings suggestive of left-sided median mononeuropathy. This is consistent with a mild to moderate left carpal tunnel syndrome. Multi Select Codes Neurology Neurology Interp Codes: 91908-22 Musc test done w/n test comp (interp) and 28229-61 Nrv cndj tst 5-6 studies (interp)
== END | disposition home or self-care (01) ==
PROVIDERS: PCP Internal Medicine; Referring Provider Orthopaedic Surgery Sports Medicine; Visit Provider Orthopaedic Surgery Sports Medicine
DX: G56.02 Carpal tunnel syndrome, left upper limb (principal)
CPT/HCPCS: 95886; 95909

== ENCOUNTER → 2025-01-27 | Outpatient (CLI) | payer OTHER, SELFPAY ==
[2025-01-27 09:00] LABS: Absolute Lymphocyte Count 1.33 X10^3/uL (0.83-4.51); Absolute Neutrophil Count 2.1 X10^3/uL (2.0-7.7); Basophil# 0.07 X10^3/uL; Basophil% 1.6 % (0-1); Eosinophil# 0.36 X10^3/uL; Eosinophils% 8.2 % (0-5); Hematocrit 44.2 % (40-54); Hemoglobin 15.2 g/dL (13.0-16.5); Lymphocyte # 1.33 X10^3/ul (0.83-4.51); Lymphocyte % 30.2 % (19-41); Mean Corp Hgb Conc 34.4 g/dL (32-36); Mean Corpuscular Hgb 31.8 pg (27.0-32.0); Mean Corpuscular Volume 92.5 fL (80-94); Mean Platelet Vol. 9.5 fl (6.2-12.0); Monocyte# 0.51 X10^3/uL; Monocyte% 11.6 % (0-10); NRBC Flagged by Analyzer 0 % (0-5); Neutrophil # 2.14 X10^3/uL (2.7-7.7); Neutrophil % 48.4 % (47-70); Platelet Count 266 K/mm3 (150-450); RBC Distribution Width CV 11.9 % (11.6-14.6); RBC Distribution Width SD 40.3 fl (35.1-43.9); Red Blood Count 4.78 M/mm3 (4.6-6.2); White Blood Count 4.4 K/mm3 (4.4-11.0)
[2025-01-27 09:20] LABS: Hemoglobin A1c 5.1 % (<=5.6)
[2025-01-27 09:48] LABS: AST(SGOT) 27 U/L (<=37); Alanine Aminotransfer ALT/SGPT 18 U/L (<=46); Albumin, Serum 4.6 g/dL (3.5-5.0); Alkaline Phosphatase 81 U/L (40-129); Anion Gap 10 (5-15); BUN 13 mg/dL (4-19); BUN/Creat Ratio 14.1 RATIO (10-20); Calcium,Total 9.5 mg/dL (7.6-11.0); Carbon Dioxide 26.1 mmol/L (21.0-32.0); Chloride 105 mmol/L (98-108); Cholesterol 194 mg/dL (<=200); Creatinine, Serum 0.91 mg/dL (0.70-1.20); EST Glomerular Filtration Rate 112 (>60); Globulin 2.4 g/dL (2.2-4.2); Glucose 94 mg/dL (70-99); High Density Lipoprotein 80 mg/dL; Low Density Lipoprotein Calc. 105 mg/dL; Potassium 4.4 mmol/L (3.3-5.1); Sodium Level 141 mmol/L (133-145); Total Bilirubin 0.28 mg/dL (0.00-1.30); Triglycerides 48 mg/dL; Very Low Density Lipoprotein 10 mg/dL (5-40); Vitamin D,25 Hydroxy 25.3 ng/mL (30-100); cholesterol:hdl ratio screen 2.43
== END | disposition home or self-care (01) ==
PROVIDERS: PCP Internal Medicine; Referring Provider Internal Medicine; Visit Provider Internal Medicine
DX: Z00.00 Encounter for general adult medical examination without abnormal findings (principal); G47.33 Obstructive sleep apnea (adult) (pediatric); E55.9 Vitamin D deficiency, unspecified; F41.9 Anxiety disorder, unspecified; F32.A Depression, unspecified; F90.9 Attention-deficit hyperactivity disorder, unspecified type; Z79.899 Other long term (current) drug therapy
CPT/HCPCS: 36415; 80053; 80061; 82306; 83036; 84443; 85025